=== PATIENT | female | born 1995 | race Caucasian/White ===

== ENCOUNTER → 2017-01-20 | Outpatient (CLI) | payer BC ==
[2014-11-16 15:34] VITALS: BP 104/61
[~2017-01-20] MED LIST: RECLIPSEN 0.151 TAB PO; XANAX0.25 MG PO
== END ==
LOC: LAB 16:03
DX: R53.81 Other malaise (principal); R63.1 Polydipsia; R35.8 Other polyuria

== ENCOUNTER → 2018-11-05 | Outpatient (CLI) | payer BC ==
[2014-11-16 15:34] VITALS: BP 104/61
[2018-11-05 16:25] LABS: EOS # 0.2 (0.04-0.40); EOS % 2.8 % (1.0-5.0); HEMATOCRIT 42.2 % (37.0-47.0); HEMOGLOBIN 13.3 g/dL (12.5-16.0); LYMPH# 2.3 (1.50-4.00); MEAN CELL VOLUME 87 fl (78-100); MEAN CORPUSCULAR HEMOGLOBIN 27 pg (27-31); MEAN CORPUSCULAR HGB CONC 32 g/dL (33-37); MEAN PLATELET VOLUME 10.1 fl (7.4-10.4); MONO # 0.7 (0.20-0.80); NEU # 3.4 (1.40-6.50); PLATELET COUNT 325 K/mm3 (130-400); RED BLOOD COUNT 4.88 M/mm3 (4.10-5.30); RED CELL DISTRIBUTION WIDTH 14.6 % (11.5-14.5); WHITE BLOOD COUNT 6.7 K/mm3 (4.8-10.8)
[2018-11-05 16:56] LABS: ALBUMIN 4.4 g/dL (3.5-5.0); POTASSIUM 3.9 mmol/L (3.5-5.1); TOTAL BILIRUBIN 0.4 mg/dL (0.2-1.2); TOTAL PROTEIN 7.9 g/dL (6.4-8.3)
[2018-11-06 18:32] LABS: FOLLICLE STIMULATING HORMONE 2.9 mIU/mL (()); PROLACTIN 14.2 ng/mL (5.2-26.5)
== END ==
LOC: LAB 15:55
PROVIDERS: Physician Assistant
DX: N91.2 Amenorrhea, unspecified (principal); L68.0 Hirsutism; Z87.42 Personal history of other diseases of the female genital tract; R53.83 Other fatigue; Z83.3 Family history of diabetes mellitus

== ENCOUNTER → 2020-04-10 | Outpatient (CLI) | payer SELFPAY ==
[2014-11-16 15:34] VITALS: BP 104/61
== END ==
LOC: LAB 08:38
DX: U07.1 COVID-19 (principal)

== ENCOUNTER 2020-06-01 11:20 | Emergency (ER) | payer BC ==
[2020-06-01] MEDS ORDERED: FLUOXETINE40 MG PO (11:32)
[2020-06-01 12:08] LABS: EOS # 0.1 (0.04-0.40); EOS % 1.2 % (1.0-5.0); HEMATOCRIT 43.2 % (37.0-47.0); HEMOGLOBIN 13.8 g/dL (12.5-16.0); LYMPH# 2.4 (1.50-4.00); MEAN CELL VOLUME 90 fl (78-100); MEAN CORPUSCULAR HEMOGLOBIN 29 pg (27-31); MEAN CORPUSCULAR HGB CONC 32 g/dL (33-37); MEAN PLATELET VOLUME 9.8 fl (7.4-10.4); MONO # 0.6 (0.20-0.80); NEU # 3.7 (1.40-6.50); PLATELET COUNT 326 K/mm3 (130-400); RED BLOOD COUNT 4.82 M/mm3 (4.10-5.30); RED CELL DISTRIBUTION WIDTH 13.7 % (11.5-14.5); WHITE BLOOD COUNT 6.8 K/mm3 (4.8-10.8)
[2020-06-01 12:15] LABS: POTASSIUM 4.2 mmol/L (3.5-5.1)
[2020-06-01 12:16] LABS: CALCIUM 9.5 mg/dL (8.3-10.5)
[2020-06-01] MEDS ORDERED: BACTRIM DS TAB1 EACH PO ×3 (15:47→18:12)
[2020-06-01] MEDS ORDERED: PERCOCET 325 MG1 TA2 PO ×3 (15:48→18:12)
[2020-06-01] MEDS ORDERED: CEFDINIR300 MG PO ×3 (15:56→18:12)
[2020-06-01 16:23] VITALS: BP 120/83
== END 2020-06-01 16:19 | disposition home or self-care (01) ==
LOC: ED 11:20
PROVIDERS: Nurse Practitioner Family
DX: L03.213 Periorbital cellulitis (principal); Z23 Encounter for immunization; Z88.0 Allergy status to penicillin
CPT/HCPCS: J0696; J1885; Q9967

== ENCOUNTER → 2021-01-17 | Outpatient (CLI) | payer BC ==
[~2021-01-17] MED LIST changes: +BACTRIM DS TAB1 EACH PO; +CEFDINIR300 MG PO; +FLUOXETINE40 MG PO; +PERCOCET 325 MG1 TA2 PO
[2021-01-17 16:45] LABS: BASO # 0.03 (0.02-0.10); EOS # 0.31 (0.04-0.40); EOS % 3.5 % (1.0-5.0); HEMATOCRIT 40.8 % (37.0-47.0); HEMOGLOBIN 13.5 g/dL (12.5-16.0); LYMPH# 2.43 (1.50-4.00); MEAN CELL VOLUME 89 fl (78-100); MEAN CORPUSCULAR HEMOGLOBIN 29 pg (27-31); MEAN CORPUSCULAR HGB CONC 33 g/dL (33-37); MEAN PLATELET VOLUME 9.5 fl (7.4-10.4); MONO # 0.79 (0.20-0.80); PLATELET COUNT 342 K/mm3 (130-400); RED BLOOD COUNT 4.61 M/mm3 (4.10-5.30); RED CELL DISTRIBUTION WIDTH 12.9 % (11.5-14.5); WHITE BLOOD COUNT 8.9 K/mm3 (4.8-10.8)
[2021-01-17 16:52] LABS: ALBUMIN 4.4 g/dL (3.5-5.0); POTASSIUM 3.7 mmol/L (3.5-5.1)
[2021-01-17 16:53] LABS: CALCIUM 9.4 mg/dL (8.3-10.5)
[2021-01-17 16:54] LABS: TOTAL PROTEIN 7.9 g/dL (6.4-8.3)
[2021-01-17 16:56] LABS: TOTAL BILIRUBIN 0.4 mg/dL (0.2-1.2)
== END ==
LOC: AMSURD 16:28 → LAB 16:28
PROVIDERS: Physician Assistant
DX: R55 Syncope and collapse (principal)

== ENCOUNTER → 2021-01-23 | Outpatient (CLI) | payer BC | LOC: RAD 06:59 | DX: R55 Syncope and collapse (principal) | CPT/HCPCS: A9585 ==

== ENCOUNTER → 2021-08-28 | Outpatient (CLI) | payer BC | LOC: LAB 13:14 | DX: J01.90 Acute sinusitis, unspecified (principal); Z20.822 Contact with and (suspected) exposure to COVID-19 ==